=== PATIENT | female | born 1980 | race Caucasian/White ===

== ENCOUNTER 2020-12-01 08:36 | Outpatient (CLI) | payer OTHER, SELFPAY ==
--- NOTE | 2020-12-01 | CT_ITS ---
WS: [id number] CT NECK TECHNIQUE: Contrast-enhanced CT of the neck with coronal and sagittal reformatted images. CLINICAL INFORMATION: LOCALIZED ENLARGED LYMPH NODES COMPARISON: None. DLP: [address] scans at [facility] use at least one of these dose optimization techniques: automat ed exposure control; mA and/or kV adjustment per patient size (includes targeted exams where dose is matched to clinical indication); or iterative reconstruction. FINDINGS: No pathologic cervical lymphadenopathy. A few prominent right greater than left cervical ly mph nodes largest right jugulodigastric measuring 7.2 x 9.5 mm within normal limits. Otherwise normal appearing cervical lymph nodes. Normal posterior fossa. Mastoid air cells are well aerated. Paranasal sinuses are well aerated. Liz l parapharyngeal fat.Parotid glands are normal. Normal submandibular glands. Slightly prominent but o therwise normal palatine tonsils. Dental artifact degrades images at the skull base. No evidence of s upraglottic or glottic mass. Normal subglottic airway. A few tiny 1 to 2 mm lesions in the right thyr oid. Lung apices are well aerated. CT/CT neck w con* [id number] IMPRESSION: 1. Normal parotid and submandibular glands. 2. No evidence of supraglottic or glottic mass. 3. No cervical lymphadenopathy. A few slightly prominent lymph nodes within no rmal limits described above. 4. Prominent palatine tonsils otherwise normal in appearance. 5. Paranasal sinuses and mastoid air cells are well aerated. 6. No other significant findings.
[2020-12-01] MEDS: iohexol 300 mg/mL 100 mL Btl IV (09:13)
== END 2020-12-01 08:37 | disposition home or self-care (01) ==
LOC: RADWPI 08:39
PROVIDERS: PCP Nurse Practitioner Family; Visit Provider Specialist
DX: R59.0 Localized enlarged lymph nodes (principal)
CPT/HCPCS: 70491; Q9967

== ENCOUNTER 2021-02-05 12:04 | Outpatient (CLI) | payer OTHER, SELFPAY ==
--- NOTE | 2021-02-05 12:18 | XRR_ITS ---
PROCEDURE INFORMATION: Exam: XR Lumbosacral Spine Exam date and time: 02/05/2021 12:18 PM Age: 40 years old Clinical indication: Other: Coccyx pain TECHNIQUE: Imaging protocol: XR of the lumbosacral spine. Views: 2 or 3 views. Total images: 3 COMPARISON: No relevant prior studies available. FINDINGS: Bones/joints: Unremarkable. No acute fracture. Normal alignment. Pedicles intact. Intervertebral disc space heights preserved. No visible spondylolysis or spondylolisthesis. No visible significant facet arthrosis. Soft tissues: Unremarkable. XR/XR lumbar spine 2-3V* [id number] IMPRESSION: No acute findings.
--- NOTE | 2021-02-05 12:24 | XRR_ITS ---
PROCEDURE INFORMATION: Exam: XR Sacrum and Coccyx, 2 or More Views Exam date and time: 02/05/2021 12:24 PM Age: 40 years old Clinical indication: Condition or disease; Other: Coccyx pain TECHNIQUE: Imaging protocol: XR of the sacrum and coccyx, 2 or more views. Total images: 3 COMPARISON: No relevant prior studies available. FINDINGS: Bones/joints: Unremarkable. No visible acute fracture. Soft tissues: Unremarkable. XR/XR sacrum coccyx min 2V [id number] IMPRESSION: No acute findings.
== END 2021-02-05 12:05 | disposition home or self-care (01) ==
PROVIDERS: PCP Nurse Practitioner Family; Visit Provider Nurse Practitioner Family
DX: M53.3 Sacrococcygeal disorders, not elsewhere classified (principal)
CPT/HCPCS: 72100; 72220

== ENCOUNTER 2021-02-16 08:34 | Outpatient (CLI) | payer OTHER, SELFPAY ==
--- NOTE | 2021-02-16 | CT_ITS ---
WS: [id number] CT PELVIS WITH CONTRAST. HISTORY: COCCYX PAIN TECHNIQUE: Contiguous imaging is performed of the pelvis with contrast. Coronal and sagittal reformat s are reviewed. All CT scans at [facility] [place] use at least one of these dose optimization techni ques: automated exposure control; mA and/or kV adjustment per patient size (includes targeted exams w here dose is matched to clinical indication); or iterative reconstruction. DLP: 623.58 mGycm Contrast: Omnipaque 300; 95 cc IV. COMPARISON: None available. Very slight malalignment involving the distal coccyx. The distal coccyx demonstrates mild posterior d isplacement by 3.5 mm. Subluxation is at an articulation. This is consistent with a mild subluxation. This may be normal for this patient or related to prior trauma. No acute fracture identified. The sa kartik is normal. Hips are symmetric bilaterally. No soft tissue abnormality. Prior hysterectomy. No en hancing masses. Muscles are symmetric. CT/CT pelvis w con* [id number] IMPRESSION: Very minimal posterior subluxation along one of the segmentations of the distal coccyx. This could be related to an old injury. No acute fracture identified.
[2021-02-16] MEDS: iohexol 300 mg/mL 100 mL Btl IV (09:59)
== END 2021-02-16 08:35 | disposition home or self-care (01) ==
LOC: RADWPI 08:35
PROVIDERS: PCP Nurse Practitioner Family; Visit Provider Nurse Practitioner Family
DX: M53.3 Sacrococcygeal disorders, not elsewhere classified (principal)
CPT/HCPCS: 72193; Q9967